=== PATIENT | male | born 1960 | race Caucasian/White ===

== ENCOUNTER 2019-08-04 14:44 | Outpatient (REF) | payer SELFPAY ==
[2019-08-04 21:54] LABS: Anion Gap 11.2 mmol/L (3-11); BUN 15 mg/dL (7-18); CO2 26.8 mmol/L (21.0-32.0); CREATININE 0.84 mg/dL (0.70-1.30); Calcium 9.3 mg/dL (8.5-10.1); Calculated LDL 100 mg/dL; Chloride 102 mmol/L (98-107); Cholesterol 175 mg/dL (50-200); Glucose 90 mg/dL (70-100); HDL Cholesterol 37 mg/dL (40-60); Potassium 3.9 mmol/L (3.5-5.1); Sodium 140 mmol/L (136-145); Triglyceride 191 mg/dL (30-150)
[2019-08-06 10:49] LABS: HIV-1/2 Ag & Ab Screen Negative (NEGAT)
[2019-08-06 10:50] LABS: Hepatitis C Ab w Rflx HCV PCR Negative (NEGAT)
== END 2019-08-04 15:04 ==
LOC: NCHCN 14:44
PROVIDERS: Visit Provider Internal Medicine
DX: I10 Essential (primary) hypertension (principal); B34.9 Viral infection, unspecified; Z13.220 Encounter for screening for lipoid disorders; Z11.4 Encounter for screening for human immunodeficiency virus [HIV]; Z11.59 Encounter for screening for other viral diseases
CPT/HCPCS: 80048; 80061; 86803; 87389

== ENCOUNTER 2020-10-27 13:33 | Outpatient (REF) | payer SELFPAY ==
[2020-10-27 15:11] LABS: ALT 34 U/L (16-63); AST 18 U/L (15-37); Alkaline Phosphatase 117 U/L (46-116); Anion Gap 6.9 mmol/L (3-11); BUN 19 mg/dL (7-18); Bilirubin, Direct 0.17 mg/dL (0.00-0.20); Bilirubin, Total 0.9 mg/dL (0.2-1.0); CO2 29.1 mmol/L (21.0-32.0); CREATININE 0.95 mg/dL (0.70-1.30); Calcium 8.8 mg/dL (8.5-10.1); Chloride 100 mmol/L (98-107); Glucose 100 mg/dL (74-106); Sodium 136 mmol/L (136-145); Total Protein 6.9 g/dL (6.4-8.2)
[2020-10-27 15:29] LABS: Calculated LDL 127 mg/dL (<100); Cholesterol 202 mg/dL (<200); HDL Cholesterol 35 mg/dL (40-60); Triglyceride 204 mg/dL (<150)
== END 2020-10-27 13:53 ==
LOC: NCHCN 13:33
PROVIDERS: Visit Provider Internal Medicine
DX: I10 Essential (primary) hypertension (principal); F10.20 Alcohol dependence, uncomplicated; Z13.220 Encounter for screening for lipoid disorders
CPT/HCPCS: 80048; 80061; 80076

== ENCOUNTER 2023-05-04 09:32 | Outpatient (REF) | payer SELFPAY ==
[2023-05-04 15:45] LABS: ALT 40 U/L (16-63); AST 26 U/L (15-37); Albumin 3.9 g/dL (3.4-5.0); Alkaline Phosphatase 105 U/L (46-116); Anion Gap 7.6 mmol/L (3-11); BUN 20 mg/dL (7-18); Bilirubin, Total 1.4 mg/dL (0.2-1.0); CO2 29.4 mmol/L (21.0-32.0); CREATININE 1.1 mg/dL (0.70-1.30); Calcium 9.1 mg/dL (8.5-10.1); Calculated LDL 87 mg/dL (<100); Chloride 101 mmol/L (98-107); Cholesterol 166 mg/dL (<200); Estimated GFR 76.37 (mL/min/1.73m2); Glucose 106 mg/dL (74-106); HDL Cholesterol 32 mg/dL (40-60); Potassium 3.8 mmol/L (3.5-5.1); Sodium 138 mmol/L (136-145); Total Protein 7.2 g/dL (6.4-8.2); Triglyceride 235 mg/dL (<150)
== END 2023-05-04 09:33 | disposition home or self-care (01) ==
LOC: NCHCN 09:32
PROVIDERS: PCP Internal Medicine; Visit Provider Internal Medicine
DX: I10 Essential (primary) hypertension (principal); E78.5 Hyperlipidemia, unspecified; R94.5 Abnormal results of liver function studies
CPT/HCPCS: 80053; 80061

== ENCOUNTER 2025-02-02 15:00 | Outpatient (REF) | payer SELFPAY ==
[2025-02-02 21:43] LABS: HGB 16.5 g/dL (13.5-17.5); MCHC 33.7 % (32.0-36.0); MCV 86 fL (80-95); Platelet Count 188 10^3/uL (130-400); RBC 5.69 10^6/uL (4.36-5.78); RDW 12.8 % (11.8-14.1); RDW-SD 39.9 fL; WBC 10.96 10^3/uL (4.4-10.8)
[2025-02-02 22:15] LABS: ALT 32 U/L (16-63); AST 33 U/L (15-37); Albumin 4.1 g/dL (3.4-5.0); Alkaline Phosphatase 130 U/L (46-116); Anion Gap 9.3 mmol/L (3-11); BUN 16 mg/dL (7-18); CO2 28.7 mmol/L (21.0-32.0); CREATININE 0.9 mg/dL (0.70-1.30); Calcium 9.5 mg/dL (8.5-10.1); Calculated LDL 78 mg/dL (<100); Chloride 100 mmol/L (98-107); Cholesterol 162 mg/dL (<200); Estimated GFR 95.97 (mL/min/1.73m2); Glucose 100 mg/dL (74-106); HDL Cholesterol 35 mg/dL (>or=40); Potassium 3.9 mmol/L (3.5-5.1); Sodium 138 mmol/L (136-145); Total Protein 7.7 g/dL (6.4-8.2); Triglyceride 249 mg/dL (<150)
[2025-02-02 22:19] LABS: Hemoglobin A1C 5.7 % (<5.7)
== END 2025-02-02 15:01 | disposition home or self-care (01) ==
LOC: NCHCN 15:00
PROVIDERS: PCP Internal Medicine; Visit Provider Internal Medicine
DX: R73.03 Prediabetes (principal); E78.5 Hyperlipidemia, unspecified; I10 Essential (primary) hypertension
CPT/HCPCS: 80053; 80061; 85027; 83036